=== PATIENT | female | born 1940 | race Caucasian/White ===

== ENCOUNTER → 2017-02-12 | Outpatient (CLI) | payer SELFPAY | END | disposition home or self-care (01) | LOC: OIH 14:11 | PROVIDERS: ATTEND Internal Medicine Cardiovascular Disease | DX: Z13.6 Encounter for screening for cardiovascular disorders (principal) | CPT/HCPCS: 75571 ==

== ENCOUNTER 2018-03-21 19:59 | Emergency (ER) | payer MEDICARE, SELFPAY ==
[2018-03-21] MEDS ORDERED: IPRATROPIUM/ALBUTEROL SULFATE 3 ML SOLUTION IH ONE (20:21)
[2018-03-21 21:30] LABS: APPEARANCE,URINE Clear (CLEAR); BILIRUBIN,URINE Negative (NEGATIVE); COLOR,URINE Yellow (YELLOW); GLUCOSE, URINE (UA) Negative (NEGATIVE); KETONES,URINE Negative (NEGATIVE); LEUKOCYTE ESTERASE ,URINE Trace (NEGATIVE); NITRATE,URINE Negative (NEGATIVE); OCCULT BLOOD,URINE Trace (NEGATIVE); PROTEIN,URINE Negative (NEGATIVE); UROBILINOGEN,URINE 0.2 mg/dL (0.2-1.0)
[2018-03-21] MEDS ORDERED: ALBUTEROL SULFATE 0.083% 2.5 MG/3 ML INH IH ONE (21:47)
[2018-03-21 22:23] LABS: BACTERIA,URINE Rare /HPF (None Seen); RBC,URINE 0-1 /HPF (0-1); SQUAMOUS EPITHELIAL CELL,UR 0-2 /HPF (0-2); WBC,URINE 0-1 /HPF (0-1)
== END 2018-03-21 22:20 | disposition home or self-care (01) ==
LOC: EDH 19:59
DX: J18.8 Other pneumonia, unspecified organism (principal); I10 Essential (primary) hypertension; K21.9 Gastro-esophageal reflux disease without esophagitis; Z98.890 Other specified postprocedural states; Z90.710 Acquired absence of both cervix and uterus; Z88.0 Allergy status to penicillin; Z91.041 Radiographic dye allergy status; Z88.8 Allergy status to other drugs, medicaments and biological substances
CPT/HCPCS: 71046; 81001; 93005; 94640

== ENCOUNTER → 2022-11-18 | Outpatient (CLI) | payer MEDICARE ==
[~2022-11-18] MED LIST: DiphenhydrAMINE HCL 50 MG/ML VIAL ONE; IOHEXOL 350 MG/ML 100ML INFUS..BTL IV ONE; METOPROLOL TARTRATE 1 MG/ML 5ML VIAL IV ONE
== END | disposition home or self-care (01) ==
LOC: RAH 08:28
PROVIDERS: ATTEND Student in an Organized Health Care Education/Training Program
DX: M47.815 Spondylosis without myelopathy or radiculopathy, thoracolumbar region (principal); R07.9 Chest pain, unspecified
CPT/HCPCS: 75574; J1200; J3490; Q9967 ×2

== ENCOUNTER → 2023-05-11 | Outpatient (CLI) | payer MEDICARE | END | disposition home or self-care (01) | LOC: RAH 12:33 | PROVIDERS: ATTEND Student in an Organized Health Care Education/Training Program | DX: I34.0 Nonrheumatic mitral (valve) insufficiency (principal); I42.1 Obstructive hypertrophic cardiomyopathy; I43 Cardiomyopathy in diseases classified elsewhere | CPT/HCPCS: 93306 ==

== ENCOUNTER → 2023-06-06 | Outpatient (CLI) | payer MEDICARE | END | disposition home or self-care (01) | LOC: SHCH 07:37 | PROVIDERS: ATTEND Student in an Organized Health Care Education/Training Program | DX: I51.89 Other ill-defined heart diseases (principal); I42.1 Obstructive hypertrophic cardiomyopathy | CPT/HCPCS: 93306 ==

== ENCOUNTER → 2023-07-09 | Outpatient (CLI) | payer MEDICARE | END | disposition home or self-care (01) | LOC: SHCH 14:49 | PROVIDERS: ATTEND Student in an Organized Health Care Education/Training Program | DX: I08.8 Other rheumatic multiple valve diseases (principal); I42.1 Obstructive hypertrophic cardiomyopathy; I10 Essential (primary) hypertension; E78.5 Hyperlipidemia, unspecified | CPT/HCPCS: 93306; 93356 ==

== ENCOUNTER → 2023-09-29 | Outpatient (CLI) | payer MEDICARE | END | disposition home or self-care (01) | LOC: SHCH 13:32 | PROVIDERS: ATTEND Student in an Organized Health Care Education/Training Program | DX: I42.1 Obstructive hypertrophic cardiomyopathy (principal) | CPT/HCPCS: 93306 ==

== ENCOUNTER → 2023-12-17 | Outpatient (CLI) | payer MEDICARE | END | disposition home or self-care (01) | LOC: SHCH 11:26 | PROVIDERS: ATTEND Student in an Organized Health Care Education/Training Program | DX: I42.1 Obstructive hypertrophic cardiomyopathy (principal) | CPT/HCPCS: 93306 ==

== ENCOUNTER → 2024-03-10 | Outpatient (CLI) | payer MEDICARE ==
--- NOTE | 2024-03-15 08:07 | HMCSR ---
APPROVED REPORT EXAM: Two-dimensional and M-mode echocardiogram with Doppler and color Doppler. INDICATION ICD: I10.0 Essential (primary) Hypertension 2D Dimensions RVDd3.8 cmLVEF(%)55.4 (>50%)LVED Vol(simp.)75.0 mL IVSd1.9 (0.7-1.1cm)FS(%)28 %LVES Vol(simp.)32.0 mL LVDd3.8 (3.8-5.6cm)Ao Root(2D)3.1 (2.0-3.7cm)LVEF(%, simp.)57 % PWd0.8 (0.7-1.1cm)LVOT diam2.0 (1.8-2.4cm)LA ESV INDEX (BP)27.60 mL/m2 LVDs2.7 (2.5-4.0cm)IVC diam1.2 cm Aortic Valve AoV Vmax2.2 m/Ervin Peak GR19.1 mmHgLVOT Vmax1.8 m/s AoV VTI0.5 mAo Mean GR10.6 mmHgLVOT VTI0.38 m NATALIIA (VMAX)2.6 cm2AVA (VTI) 2.6 cm2 Mitral Valve MV E Vmax75.9 cm/sDECEL Txvs162 ms MV A Pqci085.2 cm/sP 1/2 T108 ms E/A ratio0.7MVA (PHT)2.0 cm2 MR Max PG115 mmHg TDI E/E' Uruwho58.9E/E' Jhgvicd95.1 Pulmonary Valve PV Vmax0.9 m/sPV VTI0.21 mPV Mean GR2 mmHg PV Peak GR3.0 mmHgPI End Anastasiia. Fidel 0.9 cm/s Tricuspid Valve TR Vmax2.2 m/sRAP (EST) 3 hoLnXKIS74.5 mmHg TR Peak GR19.5 mmHg Left Ventricle Left ventricular cavity size is normal. There is severe asymmetric basal septal left ventricular hype rtrophy. Peak LVOT max gradient is 15 mm Hg. LVEF is 55-60%. Indeterminate diastolic function. Right Ventricle The right ventricle is normal size. The right ventricular systolic function is normal. Atria The left atrium size is normal. The right atrium size is normal. Aortic Valve Aortic valve is trileaflet. Aortic valve leaflets are sclerotic but open well. Trace aortic regurgita tion. There is no aortic valvular stenosis. Mitral Valve Mitral valve leaflets are mildly sclerotic but open well. Mitral regurgitation is mild to moderate. T here is no mitral valve stenosis. Tricuspid Valve The tricuspid valve leaflets appear normal. There is mild tricuspid regurgitation. Pulmonic Valve The pulmonic valve leaflets are thin and pliable; valve motion is normal. There is trace to mild valv ular regurgitation. Great Vessels The aortic root is normal in size. The IVC is normal in size and collapses >50% with inspiration. Pericardium No pericardial effusion. Conclusion Left ventricular cavity size is normal. There is severe asymmetric basal septal left ventricular hypertrophy. Peak LVOT max gradient is 15 mm Hg. LVEF is 55-60%. The right ventricle is normal size. The right ventricular systolic function is normal. The left atrium size is normal. The right atrium size is normal. Mitral regurgitation is mild to moderate. There is mild tricuspid regurgitation. No pericardial effusion.
== END | disposition home or self-care (01) ==
LOC: SHCH 12:53
PROVIDERS: ATTEND Student in an Organized Health Care Education/Training Program
DX: I08.8 Other rheumatic multiple valve diseases (principal); I11.9 Hypertensive heart disease without heart failure
CPT/HCPCS: 93306

== ENCOUNTER → 2024-06-02 | Outpatient (CLI) | payer MEDICARE | END | disposition home or self-care (01) | LOC: SHCH 08:48 | PROVIDERS: ATTEND Student in an Organized Health Care Education/Training Program | DX: I08.1 Rheumatic disorders of both mitral and tricuspid valves (principal); I10 Essential (primary) hypertension; I42.1 Obstructive hypertrophic cardiomyopathy | CPT/HCPCS: 93306 ==